=== PATIENT | female | born 1970 | race Caucasian/White ===

== ENCOUNTER 2025-03-15 09:43 | Emergency (ER) | payer OTHER, SELFPAY ==
[2025-03-15 09:44] VITALS: BP 179/98; PULSE 66; RESP 16; TEMP 36.7; O2SAT 97; BMI 44.6
--- NOTE | 2025-03-15 10:20 | CT_ITS ---
PROCEDURE: CT temporal bone without contrast REASON FOR EXAM: SUSPECTED RIGHT MASTOIDITIS TECHNIQUE: Noncontrast CT temporal bone with multi planar reconstructions One or more dose reduction techniques were used (e.g., Automated exposure control, adjustment of the mA and/or kV according to patient size, use of iterative reconstruction technique). FINDINGS: Inspection of the right temporal bone demonstrates normal external canal and internal canal. Normal vestibular aqueduct, vestibule, cochlear, ossicles, middle ears and mastoid air cells. Left temporal bone demonstrates normal mastoid air cells, internal and external auditory canals and ossicular chain. Normal vestibule and cochlea. Normal tegmen and scutum. No bone destruction. Coronal images of the left within normal limits. No soft tissue prominence is seen. CT/Orb Sella Post Fossa Ear w/o IMPRESSION: Temporal bone CT within normal limits Reading Location: [facility]
--- NOTE | 2025-03-15 10:23 | EDS_ITS ---
HPI History of Present Illness Chief Complaint: Cellulitis Informant: patient and spouse/S.O. Onset/Context/Timing Onset: Days Context: Gradual Onset Timing: Continuous Current Severity: Moderate Maximum Severity: Moderate Narrative Narrative: Healthy 54-year-old female history of a prior DVT and reflux. Said on Sunday she started getting redness and swelling in front of her right ear and behind it. They were traveling from [place] and saw an urgent care here on Sunday. He started on Keflex 4 times a day she is taking it now 2 full days status is only getting worse now she has swollen tender lymph nodes on the right side of her neck. Denies any ear pain or trouble swallowing. No prior history. No ot her complaints. Prior similar symptoms: No Recent Illness/Hospitalization: No PFSH PFSH Medical History DVT (deep venous thrombosis) GERD (gastroesophageal reflux disease) Allergy/AdvReac Type Severity Reaction Status Date / Time No Known Allergies Allergy Verified 03/15/25 09:44 Social History Smoking Status: Never smoker ROS ROS ED ROS Narrative Denies recent complaints. Constitutional Constitutional ED: Denies chills or fever(s) Eyes Eyes: Denies blurry vision ENT ENT ED: Denies ear pain or sore throat Cardiovascular Cardiovascular: Denies chest pain Respiratory/Chest Respiratory/Chest: Denies cough or dyspnea Gastrointestinal Gastrointestinal: Denies abdominal pain Genitourinary Genitourinary ED: Denies dysuria or hematuria Musculoskeletal Musculoskeletal: Denies arthralgias Integumentary Denies abscess Neurologic Neurologic: Denies headache(s) Psychiatric Psychiatric: Denies anxiety Endocrine Endocrinology: Denies cold intolerance Hematologic/Lymphatic Hematologic/Lymphatic: Reports none Allergic/Immunologic Allergic/Immunologic ED: Denies mouth swelling, tongue swelling or urticaria EXAM Physical Exam Narrative Exam Narrative: 34-year-old female sitting upright in bed. Spouse at bedside. Vital signs are stable afebrile. H EENT exam pupils round reactive light. Posterior pharynx unremarkable. Right TM normal. She has redness and swelling to her preauricular area in front of her right ear and her mastoid behind her right ear. Has mild tenderness. She also has right sided anterior and lateral cervical lymphadenopathy. Trachea midline. Left side of the neck nontender nonswollen. Lungs clear to auscultation. Heart regular rhythm no murmur. Chest wall nontender. Abdomen soft. Moves all 4 extremities. Neurologically she is awake and alert. Answering questions following commands. Const Vital Signs: 03/15/25 09:44 Temperature 98.0 F Temperature Source Oral Pulse Rate 66 Respiratory Rate 16 Blood Pressure 179/98 H Blood Pressure Mean 125 Pulse Ox 97 Oxygen Delivery Method Room Air Positive well nourished and well developed; Negative for cachectic, contractures or unkempt General Appearance ED: well developed and NAD; Negative for unkempt, cachectic, contractures, cyanotic, diaphoretic or pallor Nutritional Appearance: Negative for cachectic HEENT Reports moist mucous membranes HEENT Narrative: Preauricular redness and swelling on the right. Right mastoid redness and tenderness. Negative for trauma or tenderness Eyes EOMs intact bilaterally Neck No no lymphadenopathy, supple and no JVD Neck Narrative: Right-sided lymphadenopathy. Tender. General: tenderness Chest Wall inspection of chest normal and palpation of chest normal Resp normal respiratory effort and clear to auscultation bilaterally Effort and Inspection: Negative for retractions Auscultation: Negative for rales, rhonchi, wheezes or diminished lung sounds Cardio regular rate, regular rhythm, S1 normal heart sound, S2 normal heart sound and no murmurs Palpation: Negative for palpable S3 or palpable S4 Rate: Negative for bradycardia or tachycardic Rhythm: Negative for abnormal rhythm GI normal to inspection, nondistended, normoactive bowel sounds, non-tender, non- distended and no masses Auscultation: normoactive bowel sounds Palpation: soft; Negative for tender, guarding or rebound tenderness present Back/Spine no CVA tenderness General Back: Negative for CVA tenderness Cervical Spine: Negative for cervical spine tenderness Thoracic Spine / Upper Back: Negative for thoracic spinal tenderness or paraspinal muscle tenderness Lumbar Spine / Lower Back: Negative for lumbar spinal tenderness Extremity normal to inspection General Extremety ED: Negative for edema or tenderness General Extremity: Negative for edema Neuro oriented x3 and CN's II-XII intact bilaterally Sensorium / Orientation: alert Motor Exam: strength 5/5 throughout Psych mental status grossly normal Appearance: Negative for unkempt Attitude: No agitated Mood & Affect: Negative for depressed, anxious or tearful Skin No no rashes or lesions noted, no wounds and skin turgor normal Skin Narrative: Redness to her right mastoid and preauricular area on the right. General Skin Exam: Negative for jaundice or pallor Lesions: No lesion noted Rashes: rashes noted Trauma: Negative for abrasion Wounds: Negative for wounds noted MDM MDM MDM Narrative Medical decision making narrative: 54-year-old female redness and swelling with lymphadenopathy in the right side of her neck consistent with a possible mastoiditis versus cellulitis. CAT scan and labs being obtained. Treated with IV Zosyn. She was started on antibiotics 2 days ago this is only gotten worse. Repeat exam patient is doing well at 12:42 PM. Repeat exam unchanged no worse. I went over the CAT scan the labs with her and her . They are traveling back to [place] tomorrow. Given her labs and how she looks on her CAT scan there is no reason to admit her. She did get a dose of IV Zosyn here. She will be placed on Augmentin 875 twice daily for 7 days. She will follow-up with her primary care physician in [place]. She knows if any problems In the next 24 hours she is to return or emergency department. History & Record Review Discussion w/independent historian: Patient and Family Additional record(s) reviewed:: No prior records Lab Data Attestation: I reviewed the patient's lab results. Lab results narrative: CBC shows a white count of 4. H&H 13.5 and 41. Platelets slightly low at 140. Electrolytes show sodium 141. Gap 10. BUN and creatinine of 20 and 0.6. Glucose 93. CAT scan looks good no signs of mastoiditis. Labs: Laboratory Results - last 24 hr 03/15/25 10:49 WBC 4.4 RBC 4.29 Hgb 13.5 Hct 41.2 MCV 96.0 MCH 31.5 MCHC 32.8 RDW Std Deviation 46.7 H RDW Coeff of Genevieve 13.2 Plt Count 140 L MPV 9.6 Immature Gran % (Auto) 0.500 Neut % (Auto) 65.1 Lymph % (Auto) 21.7 [place] % (Auto) 10.2 H Eos % (Auto) 2.0 Baso % (Auto) 0.5 Absolute Neuts (auto) 2.9 Absolute Lymphs (auto) 0.96 Nucleated RBC % 0 Sodium 141 Potassium 4.5 Chloride 105 Carbon Dioxide 25.5 Anion Gap 10 BUN 20 H Creatinine 0.69 L Estim Creat Clear Calc 127.77 Est GFR (MDRD) Non-Af 104 BUN/Creatinine Ratio 28.6 H Glucose 93 Calcium 9.2 Radiography Diagnostic Testing: Clinical Impression(s) from Imaging Studies CT Orbit Sella Inner 03/15/25 10:20 IMPRESSION: Temporal bone CT within normal limits Reading [facility] Discharge Plan Triage Chief Complaint: Cellulitis ED Provider: Louis Amor Dx/Rx/DC Orders Print Language: Burkinan
[2025-03-15 10:56] LABS: Absolute Lymphocyte Count 0.96 X10^3/uL (0.83-4.51); Absolute Neutrophil Count 2.9 X10^3/uL (2.0-7.7); Basophil# 0.02 X10^3/uL; Basophil% 0.5 % (0-1); Eosinophil# 0.09 X10^3/uL; Hematocrit 41.2 % (37-47); Hemoglobin 13.5 g/dL (12.0-15.0); Lymphocyte # 0.96 X10^3/ul (0.83-4.51); Lymphocyte % 21.7 % (19-41); Mean Corp Hgb Conc 32.8 g/dL (32-36); Mean Corpuscular Hgb 31.5 pg (27.0-32.0); Mean Platelet Vol. 9.6 fl (6.2-12.0); Monocyte# 0.45 X10^3/uL; Monocyte% 10.2 % (0-10); NRBC Flagged by Analyzer 0 % (0-5); Neutrophil # 2.88 X10^3/uL (2.7-7.7); Neutrophil % 65.1 % (47-70); Platelet Count 140 K/mm3 (150-450); RBC Distribution Width CV 13.2 % (11.6-14.6); RBC Distribution Width SD 46.7 fl (35.1-43.9); Red Blood Count 4.29 M/mm3 (4.2-5.4); White Blood Count 4.4 K/mm3 (4.4-11.0)
[2025-03-15] MEDS: Piperacil/Tazobactam 4.5 GM in 0.9% Normal Saline (100mL MB+) 100 ML IV (11:07)
[2025-03-15 11:29] LABS: Anion Gap 10 (5-15); BUN 20 mg/dL (4-19); BUN/Creat Ratio 28.6 RATIO (10-20); Calcium,Total 9.2 mg/dL (7.6-11.0); Carbon Dioxide 25.5 mmol/L (21.0-32.0); Chloride 105 mmol/L (98-108); Creatinine, Serum 0.69 mg/dL (0.70-1.20); EST Glomerular Filtration Rate 104 (>60); Estimated Creatinine Clearance 127.77 ml/min (50-250); Glucose 93 mg/dL (70-99); Potassium 4.5 mmol/L (3.3-5.1); Sodium Level 141 mmol/L (133-145)
[2025-03-15 12:41] VITALS: BP 179/98; PULSE 66; RESP 16; TEMP 36.7; O2SAT 97
== END 2025-03-15 13:16 | disposition home or self-care (01) ==
PROVIDERS: Emergency Provider Emergency Medicine; Visit Provider Emergency Medicine
DX: H60.11 Cellulitis of right external ear (principal)
CPT/HCPCS: 70480; 80048; 85025; 96365; 99283; A4216